=== PATIENT | male | born 1965 | race Caucasian/White ===

== ENCOUNTER 2017-01-08 05:29 | Day surgery (SDC) | payer OTHER ==
[~2017-01-08] VITALS: Ht 182.9 cm; Wt 103.4 kg
--- NOTE | ~2017-01-08 | EKG ---
[address] [address] ELECTROCARDIOGRAM REPORT Name: CARON GOODSON Room #: [address] [place] [address]#: [id number] Admission: 01/08/17 Attend Phys: Nena Burnett MD, Discharge: Date of : 67 Report #: [id number] THIS REPORT FOR: //name// [facility] Test Date: 2017-01-08 Test Time: 06:47:06 Pat Name: CARON GOODSON Department: Room: 150 Gender: M Text Transcriber: KRISTIE : 1965 Requested By: Nena Burnett Order Number: [id number] MD: Damien Cabezas Measurements Intervals [place] Rate: 57 P: 22 MI: 209 QRS: 22 QRSD: 94 T: 29 QT: 428 QTc: 417 Interpretive Statements Sinus rhythm Borderline prolonged MI interval Probable left atrial enlargement Compared to ECG 12/13/2015 06:35:47 No significant changes Electronically Signed On 01-08-2017 8:27:04 CDT by Damien Cabezas [email or web address] <ELECTRONICALLY SIGNED> By: Damien Cabezas MD, [facility] 01/08/17 0827 6 6 Damien Cabezas MD, [facility] /EPI
--- NOTE | ~2017-01-08 | O ---
[facility] [place] [address] OPERATIVE REPORT Name: HAMZAHCARON P Room #: DEP [facility].#: [id number] Admission: 01/08/17 Attend Phys: Nena Burnett MD, Discharge: 01/08/17 Date of : 67 Report #: [id number] THIS REPORT FOR: //name// CC: Nathalie Burnett DATE OF SERVICE: 01/08/2017 PREOPERATIVE DIAGNOSES: 1. Recurrent incisional ventral hernia. 2. Obesity with a body mass index of 31.38. 3. Laparoscopic sleeve gastrectomy surgery status. 4. Kidney transplant status. 5. Hypertension. 6. Hypercholesterolemia. 7. Chronic immunosuppression. POSTOPERATIVE DIAGNOSES: 1. Incarcerated recurrent incisional ventral hernia. 2. Obesity with a body mass index of 31.38. 3. Laparoscopic sleeve gastrectomy surgery status. 4. Kidney transplant status. 5. Hypertension. 6. Hypercholesterolemia. 7. Chronic immunosuppression. 8. Intraabdominal adhesions. PROCEDURES PERFORMED: 1. Laparoscopic repair of an incarcerated recurrent incisional ventral hernia with mesh. 2. Laparoscopic lysis of adhesions. SURGEON: Nena Burnett M.D. PENAL OFFICER: Isael Starr M.D. ANESTHESIA: General endotracheal anesthesia. ESTIMATED BLOOD LOSS: Minimal (less than 5 mL). COMPLICATIONS: None appreciated. SPECIMENS: None. INDICATIONS: The patient is a 52-year-old obese male, who is slightly greater than one year status post a complex abdominal wall reconstruction for [facility] [address] [place] [address] OPERATIVE REPORT Name: HAMZAHCARON Davida Room #: DEP [facility] [place].R.#: [id number] Admission: 01/08/17 Attend Phys: Nena Burnett MD, Discharge: 01/08/17 Date of : 67 Report #: [id number] repair of a recurrent incarcerated incisional ventral hernia of a right flank incision from a prior kidney transplant procedure. That complex abdominal wall reconstruction procedure was performed through a longitudinal midline incision, as well as a sandwiched repair with biologic mesh of the right flank incision. The patient has done exceptionally well from that repair and has had no further evidence of bulging at his right flank incision. However, he has now shown evidence of bulging around his upper midline longitudinal wound. At the time of the patient's complex abdominal wall reconstruction, I did encounter an umbilical hernia upon making my longitudinal midline wound and as such performed an incisional ventral hernia repair upon closing the midline fascial wound upon exit. As the patient's herniation is centered around that site, this is a recurrent incisional hernia that intraoperative findings proved to be incarcerated with omentum. As such, indication was for the above-mentioned procedures today. DESCRIPTION OF PROCEDURE: After explaining the risks, benefits, and alternatives of the procedure with the patient in detail in the preoperative holding area and obtaining written consent, the patient was brought to the operating room and placed supine on the operating room table. After conducting a thorough timeout procedure, verifying correct patient and procedure, the patient was given general endotracheal anesthesia. Once adequate anesthesia was obtained, SCDs were placed on the patient's bilateral lower extremities, and he was given a preoperative dose of antibiotics in line with the SCIP protocol. The patient's abdomen was prepped and draped in the standard surgical sterile fashion. 5 mL of 0.5% Marcaine with epinephrine were used to anesthetize the skin in the left upper quadrant and midclavicular line in an immediate subcostal location. A #15 bladed scalpel was used to create a small skin shruthi at this location. A 5 mm Visiport was placed over 0-degree 5 mm laparoscope and was introduced through this incision site. Once intraabdominal placement was verified visually, the obturator for the trocar and laparoscope were both removed, and the abdomen was insufflated to 15 mmHg using carbon dioxide gas. The laparoscope was changed to a 5-mm 30-degree laparoscope, which was reintroduced through this trocar. The entire abdomen was evaluated to ensure no injury upon entry. The patient did have significant intra-abdominal adhesions of omentum plastered to the posterior aspect of the anterior abdominal wall. In the patient's left lateral abdomen, however, this was completely devoid of adhesions and as such, I was able to place 2 additional trocars in the left flank. A 12 mm port was placed lateral to the umbilicus at the anterior axillary line and an additional 5 mm port was placed in the left lower quadrant. Both additional trocars were placed under direct vision after anesthetizing the skin at each location with 5 mL of 0.5% Marcaine with epinephrine, and I had created appropriately sized skin nicks using #15 bladed scalpel. The laparoscope was changed to the 12 mm port, and I proceeded to carry out an extensive lysis of adhesions using Harmonic scalpel to skeletonize the posterior aspect of the anterior abdominal wall throughout. There was no evidence of bowel tethered to the abdominal wall in any way, and as such, always remote from [facility] [address] [place] [address] OPERATIVE REPORT Name: CARON GOODSON Room #: DEP [facility]#: [id number] Admission: 01/08/17 Attend Phys: Nena Burnett MD, Discharge: 01/08/17 Date of : 67 Report #: [id number] the possibility of injury to bowel from thermal spread. Once I had skeletonized the entire posterior aspect of the anterior abdominal wall, evaluation of the prior mesh repair of the flank hernia was evaluated, and this was intact and well healed with eventration, weakening, or bulging whatsoever. There was one area of bowel tethered to the extreme right lower quadrant abdominal wall, well away from our area of herniation, that appeared to be possibly the appendix welded to the prior mesh repair from adhesions, and this was left alone and not manipulated. Attention was then turned back towards the recurrent incisional hernia in question, that had now had its incarcerated omentum removed from the defect. The hernia defect itself was oval in shape and measured 9 cm in craniocaudal dimension x 4.5 cm transversely. I, therefore, selected a piece of Ventralight ST mesh with the echo positioning system, that measured 20 x 15.4 cm in dimension to give me minimum 5 cm overlap in all directions outside the hernia defect in question. The mesh was rolled up, placed in the abdomen through the 12 mm port. The Pako-Camilo suture passer device was driven directly through the center most portion of the recurrent hernia, whereby the end eyelet of the balloon insufflation tubing for the echo positioning system was grasped, pulled up through the abdominal wall, cut off and passed off the field. The syringe insufflator was then attached to the balloon insufflation tubing, and the echo scaffolding was fully inflated. A hemostat was used to clamp this tubing at the skin level externally to hold the entire mesh in close approximation with the posterior aspect of the anterior abdominal wall throughout. The insufflation pressure was then decreased to 8 mmHg, and I proceeded to circumferentially fix the mesh into place using the SecureStrap absorbable fixation device at 1 cm intervals around the periphery of the mesh. Once this was fixed into place around the periphery, the hemostat was elevated externally, and suture scissors were used to cut the balloon insufflation tubing at the skin level. I then placed the laparoscope in the left upper quadrant trocar, and proceeded to remove the echo scaffolding under direct vision in toto with ease. I then proceeded to place the laparoscope back to the 12 mm port, and utilized the SecureStrap absorbable fixation device to place numerous tacks throughout the innermost portion of the mesh as well to hold the entire mesh in close approximation with the posterior aspect of the anterior abdominal wall. A second circumferential ring around the hernia defect was placed in addition to other numerous tacks. Photodocumentation of the hernia, as well as the mesh repair were taken and provided to the patient and the permanent medical record. Hemostasis was assured. Laparoscope was placed back in the left upper quadrant trocar, and I proceeded to close the 12 mm fascial incision using 0 PDS suture on a Pako-Camilo needle under direct vision. This was tied down under direct vision to ensure that I did not catch a loop of bowel or omentum within the repair. The abdomen was fully desufflated. All ports were removed under direct vision. 4-0 Monocryl was used in a standard subcuticular fashion for all skin incisions and Dermabond glue was applied to all skin wounds. At the end of the procedure, all instrument, needle, and sponge counts were correct. The patient tolerated the procedure without incident, was awakened in the operating [facility] [address] [place] [address] OPERATIVE REPORT Name: CARON GOODSON Room #: [facility] M.R.#: [id number] Admission: 01/08/17 Attend Phys: Nena Burnett MD, Discharge: 01/08/17 Date of : 67 Report #: [id number] room and transitioned to the recovery room in stable condition with no apparent complications. <ELECTRONICALLY SIGNED> By: Nena Burnett MD, FACS 01/08/17 1638 [id number] [id number] Nena Burnett MD, FACS /nt
[~2017-01-08 05:29] MED LIST: ALLOPURINOL 30300 M2 PO; ASTAGRAF XL5 MG PO; CELLCEPT500 MG PO; DILAUDID 2 MG TA2 MG PO; GEMFIBROZIL 60600 MG PO; INDERAL LA160 M1 PO; INDERAL LA160 MG PO; LISINOPRIL20 MG PO; MAGOX 400400 MG PO; MULTIVITAMINS PO; ONDANSETRON HCL4 M2 PO; PANTOPRAZOLE SO40 M1 PO; PEPCID COMPLET1 EACH PO; PRIMIDONE 250M250 M1 PO; PROPRANOLOL 1010 MG PO; SENOKOT-S1 TA1 PO; TACROLIMUS1 MG PO; VITAMIN B-12500 MCG PO; VITAMIN D35000 UNIT PO
[2017-01-08 07:00] VITALS: BP 131/81
[2017-01-08 07:47] LABS: CALCIUM 8.6 mg/dL (8.5-10.1); CREATININE 1.1 mg/dL (0.7-1.3); POTASSIUM 4.7 mmol/L (3.5-5.1)
[2017-01-08 07:49] LABS: ALBUMIN 3.9 g/dL (3.4-5.0); TOTAL BILIRUBIN 0.5 mg/dL (<0.1-1.0); TOTAL PROTEIN 7.2 g/dL (6.4-8.2)
[2017-01-08] MEDS ORDERED: NEURONTIN 300300 M1 PO (09:39)
[2017-01-08] MEDS ORDERED: DILAUDID 2 MG TA2 MG PO (09:39)
[2017-01-08 10:02] VITALS: BP 131/81
== END 2017-01-08 15:44 | disposition home or self-care (01) ==
LOC: TBA 05:29 → OR 05:29 → TBA 05:30 → OR 08:26
PROVIDERS: Surgery
DX: K43.0 Incisional hernia with obstruction, without gangrene (principal); E66.9 Obesity, unspecified; Z68.31 Body mass index [BMI] 31.0-31.9, adult; Z94.0 Kidney transplant status; I10 Essential (primary) hypertension; E78.00 Pure hypercholesterolemia, unspecified; K66.0 Peritoneal adhesions (postprocedural) (postinfection)
CPT/HCPCS: 50010; 50101; 50249; 50386; 50455; 50555; 50558; 50859; 50962; 50984; 52265; 53307; 54022; 54118; 56462; 56525; 56526; 62110; 62900; 70005